=== PATIENT | male | born 1960 | race Two or more races ===

== ENCOUNTER 2025-03-29 07:36 | Inpatient (IN) | payer MEDICAID, OTHER ==
[~2025-03-29] VITALS: Ht 177.8 cm; Wt 98.0 kg
[2025-03-29] MEDS: SODIUM CHLORIDE 0.9% 1,000 ML IV SCH (00:15)
[2025-03-29 08:13] LABS: Hematocrit 45.4 % (41.0-53.0); Hemoglobin 15.2 g/dL (13.5-17.5); Mean Corpuscular Hemoglobin 29.1 pg (28.0-32.0); Mean Corpuscular Volume 86.8 fL (80.0-100.0); Nucleated Red Blood Cells % 0.0 %
[2025-03-29 08:18] LABS: Chloride 105 mmol/L (98-107); Potassium 4.2 mmol/L (3.5-5.1); Sodium 140 mmol/L (136-145)
[2025-03-29 08:19] LABS: Anion Gap 10 (5-15); Carbon Dioxide 25 mmol/L (20-31)
--- NOTE | 2025-03-29 08:19 | ED.PDOC ---
HPI Comments 65 year old male presents to the EDwith a chief complaint of chest pain onset 1 day. Patient has been experiencing chest pain for the past day, radiating to LT arm. He was working, lifting heavy objects, when he began experiencing mid chest pain radiating to LT arm. Pain noticed pain worsened this morning, came to ED. Upon ED arrival, patient was hypertensive with BP 221/142. Denies shortness of breath, nausea, vomiting, diarrhea, headache, dizziness, numbness/tingling, blurred vision. No other symptoms or modifying factors present at this time. Chief Complaint: Chest Pain Time Seen by MD: 08:10 Reviewed Notes: Medications, Allergies Allergies: Coded Allergies: NO KNOWN ALLERGIES (Unverified , 03/29/25) Information Source: Patient Mode of Arrival: Ambulatory Severity: Moderate Timing: Days Duration: Since onset Prehospital treatment: None Location: Chest (L) Radiation: Arm (L) Quality: Sharp Onset: At Rest Cardiac Risk Factors: None PE Risk Factors: None History of: None Modifying Factors: Nothing Past Medical History PAST MEDICAL HISTORY: Denies Surgical History: Denies all surgeries Family History Family History: Reviewed,noncontributory to illness, No family hx of Cancer, No family hx of DM, No family hx of Heart ector, No family hx of HTN, No family hx ofKidney ector, No family hx of Liver ector, No family hx of Lung ector, No family hx of Stroke Social History Smoker: Non-Smoker Alcohol: Denies ETOH Use Drugs: Denies Drug Use Lives In: Home Constitutional: denies: chills, diaphoresis, fatigue, fever, malaise, sweats, weakness, others EENTM: denies: blurred vision, double vision, ear bleeding, ear discharge, ear drainage, ear pain, ear ringing, eye pain, eye redness, hearing loss, mouth pain, mouth swelling, nasal discharge, nose bleeding, nose congestion, nose pain, photophobia, tearing, throat pain, throat swelling, voice changes, others Respiratory: denies: cough, hemoptysis, orthopnea, SOB at rest, shortness of breath, SOB with excertion, stridor, wheezing, others Cardiovascular: reports: chest pain; denies: dizzy spells, diaphoresis, Dyspnea on exertion, edema, irregular heart beat, left arm pain, lightheadedness, palpitations, PND, syncope, others Gastrointestinal: denies: abdomen distended, abdominal pain, blood streaked bowels, constipated, diarrhea, dysphagia, difficulty swallowing, hematemesis, melena, nausea, poor appetite, poor fluid intake, rectal bleeding, rectal pain, vomiting, others Genitourinary: denies: burning, dysuria, flank pain, frequency, hematuria, incontinence, penile discharge, penile sore, pain, testicle pain, testicle swelling, urgency, others Neurological: denies: dizziness, fainting, headache, left sided numbness, left sided weakness, numbness, paresthesia, pre-existing deficit, right sided numbness, right sided weakness, seizure, speech problems, tingling, tremors, weakness, others Musculoskeletal: reports: others (LT arm pain); denies: back pain, gout, joint pain, joint swelling, muscle pain, muscle stiffness, neck pain Integumetry: denies: bruises, change in color, change in hair/nails, dryness, laceration, lesions, lumps, rash, wounds, others Allergic/Immunocompromised: denies: Difficulty Healing, Frequent Infections, Hives, Itching, others Hematologic/Lymphatic: denies: anemia, blood clots, easy bleeding, easy bruisi ng, swollen glands, others Endocrine: denies: excessive hunger, excessive sweating, excessive thirst, exce ssive urination, flushing, intolerance to cold, intolerance to heat, unexplained weight gain, unexplained weight loss, others Psychiatric: denies: anxiety, bipolar disorder, depression, hopeless, panic disorder, schizophrenia, sleepless, suicidal, others All Other Systems: Reviewed and Negative Physical Exam General Appearance: Moderate Distress, Normal HEENT: Normal ENT Inspection, Pharynx Normal, TMs Normal Neck: Full Range of Motion, Non-Tender, Normal, Normal Inspection Respiratory: Chest Non-Tender, Lungs Clear, No Accessory Muscle Use, No Respiratory Distress, Normal Breath Sounds Cardiovascular: No Edema, No JVD, No Murmur, No Gallop, Normal Peripheral Pulses, Regular Rate/Rhythm Breast Exam: Deferred Gastrointestinal: No Organomegaly, Non Tender, No Pulsatile Mass, Normal Bowel Sounds, Soft Genitalia: Deferred Pelvic: Deferred Rectal: Deferred Extremities: No calf tenderness, Normal capillary refill, Normal inspection, Normal range of motion, Non-tender, No pedal edema Musculoskeletal : Apperance: Normal Neurologic: Alert, dip stand loader II-XII nml as Tested, No Motor Deficits, Normal Affect, Normal Mood, No Sensory Deficits Cerebellar Function: Normal Reflexes: Normal Skin: Dry, Normal Color, Warm Peripheral Pulses: 3+ Radial (R), 3+ Radial (L) Lymphatic: No Adenopathy Was a procedure done? Was a procedure done?: No CP Differential Dx Differential Diagnosis: A-fib, A-Flutter, Angina, Anxiety / Panic Attack, Atrial Dysrhythmia, Electrolyte Disorder Differential Diagnosis: Chest Wall Pain, Myocardial Infarction X-Ray, Labs, Meds, VS Vital Signs Date Time Temp Pulse Resp B/P (MAP) Pulse Ox O2 Delivery O2 Flow Rate FiO2 03/29/25 07:45 97 03/29/25 07:44 217/131 (159) 03/29/25 07:43 97.3 106 15 221/142 (168) 99 97.3 03/29/25 07:38 97.3 106 15 221/142 98 97.3 Lab Test 03/29/25 08:00 Range/Units White Blood Count 8.3 4.4-10.8 10^3/uL Red Blood Count 5.23 4.5-5.90 10^6/uL Hemoglobin 15.2 13.5-17.5 g/dL Hematocrit 45.4 41.0-53.0 % Mean Corpuscular Volume 86.8 80.0-100.0 fL Mean Corpuscular Hemoglobin 29.1 28.0-32.0 pg Mean Corpuscular Hemoglobin Concent 33.5 32.0-36.0 g/dL Red Cell Distribution Width 14.6 H 11.8-14.3 % Platelet Count 245 140-450 10^3/uL Mean Platelet Volume 9.3 6.9-10.8 fL Neutrophils (%) (Auto) 64.3 37.0-80.0 % Lymphocytes (%) (Auto) 27.5 10.0-50.0 % Monocytes (%) (Auto) 4.1 0.0-12.0 % Eosinophils (%) (Auto) 3.1 0.0-7.0 % Basophils (%) (Auto) 1.0 0.0-2.0 % Neutrophils # (Auto) 5.3 1.6-8.6 10 ^3/uL Lymphocytes # (Auto) 2.3 0.4-5.4 10 ^3/uL Monocytes # (Auto) 0.3 0-1.3 10 ^3/uL Eosinophils # (Auto) 0.3 0-0.8 10 ^3/uL Basophils # (Auto) 0.1 0-0.2 10 ^3/uL Nucleated Red Blood Cells 0.0 % Sodium Level 140 136-145 mmol/L Potassium Level 4.2 3.5-5.1 mmol/L Chloride Level 105 98-107 mmol/L Carbon Dioxide Level 25 20-31 mmol/L Anion Gap 10 5-15 Blood Urea Nitrogen 21 9-23 mg/dL Creatinine 1.22 0.700-1.30 mg/dL Glomerular Filtration Rate Calc 66 >90 mL/min BUN/Creatinine Ratio 17.2 10.0-20.0 Serum Glucose 127 H 74-106 mg/dL Calcium Level 10.0 8.7-10.4 mg/dL Troponin I High Sensitivity 195 *H </=54 ng/L Patient alert. Came in because of chest pain. Denies use of any medication. Vitals stable. Blood pressure elevated. Was given clonidine. Was given aspirin. Was given nitro. EKG reviewed does not show any acute changes. WBC within normal limits. Hemoglobin within normal limits. Continue monitoring. [place] [id number] Ph: [phone] DIAGNOSTIC IMAGING Diagnostic Imaging Report : [id number] Signed PATIENT: TERESA DEL RIO ACCT: [id number] UNIT: [id number] : 1960 LOC: ER ROOM / BED: / AGE / SEX: 65 / M ADM STATUS: REG ER SERVICE 0750 ORDERING PHYSICIAN: BULMARO HOFFMANN NP PROCEDURE(s): CXR1 - CHEST XRAY 1 VIEW REASON: CHEST PAIN ORDER NUMBER(s): [id number], ACCESSION NUMBER(s): [id number] CHEST RADIOGRAPH Indication: CHEST PAIN Technique: Single frontal view of the chest was obtained COMPARISON: None FINDINGS: Lines and Tubes: None Lungs: Increased interstital prominence. This may represent pulmonary vascular congestion and/or viral pneumonia. Pleura: No effusion. No pneumothorax. Cardiomediastinal contours: Unremarkable Bones: Unremarkable IMPRESSION: Increased interstital prominence. This may represent pulmonary vascular congestion and/or viral pneumonia. ATED BY: JAYLON BLOUNT MD DICTATED DATE/TIME: 03/29/25837 SIGNED BY: JAYLON BLOUNT MD SIGNED DATE/TIME: 03/29/25837 CC: Time of 1ST Reevaluation: 08:40 Reevaluation 1ST: Unchanged Patient Education/Counseling: Diagnosis, Treatment, Prognosis Family Education/Counseling: No Family Present SEPSIS Sepsis Screen Date sepsis recognized/suspect: Mar 29, 2025 Time Sepsis recognized/suspect: 740 Recent Procedure: No On Antibiotic Therapy: No Respiratory Rate >20: No Heart Rate >90: No Temp<36 C (96.8 F) or >38.3 C: No SBP <90 or MAP <65 mmHG: No New Acute Mental Status Change: No Is the patient on CPAP, BIPAP,: No Physician Orders Troponin-I Hs (03/29/25 08:42) Troponin-I Hs (03/29/25 10:42) Electrocardigram (03/29/25 07:58) Electrocardigram (03/29/25 08:58) Electrocardigram (03/29/25 10:58) Chest Xray 1 View (03/29/25 07:50) Vital Signs Date Time Temp Pulse Resp B/P (MAP) Pulse Ox O2 Delivery O2 Flow Rate FiO2 03/29/25 07:45 97 03/29/25 07:44 217/131 (159) 03/29/25 07:43 97.3 106 15 221/142 (168) 99 97.3 03/29/25 07:38 97.3 106 15 221/142 98 97.3 Laboratory Tests Test 03/29/25 08:00 White Blood Count 8.3 10^3/uL (4.4-10.8) Departure 1 Departure Time of Disposition: 08:20 Impression: Primary Impression: Hypertensive emergency Additional Impression: Chest pain of unknown etiology Disposition: ADMITTED INPATIENT Admit to: Med Surg Condition: Guarded Critical Care Note Critical Care Time?: Yes (90 min-critical care time only) Stability Stability form required: No Heart Score Heart Score: Heart Score Response (Comments) Value History Slightly Suspicious 0 EKG Normal 0 Age >65 2 Risk Factors >3 or Hx ASHD 2 Troponin Normal limit 0 Total 4 I personally scribed for DINA SOTO MD ([email or web address]) on 03/29/25 at 08:19. Electronically submitted by Sydnee Tilley ([email or web address]). I personally scribed for DINA SOTO MD ([email or web address]) on 03/29/25 at 08:45. Electronically submitted by Sydnee Tilley ([email or web address]). DINA SOTO MD Mar 29, 2025 08:19
[2025-03-29 08:20] LABS: Calcium 10.0 mg/dL (8.7-10.4)
[2025-03-29 08:24] LABS: BUN/Creatinine Ratio 17.2 (10.0-20.0); Blood Urea Nitrogen 21 mg/dL (9-23)
[2025-03-29 08:25] LABS: Glucose 127 mg/dL (74-106)
--- NOTE | 2025-03-29 08:40 | DVH ---
CHEST RADIOGRAPH Indication: CHEST PAIN Technique: Single frontal view of the chest was obtained COMPARISON: None FINDINGS: Lines and Tubes: None Lungs: Increased interstital prominence. This may represent pulmonary vascular congestion and/or viral pneumonia. Pleura: No effusion. No pneumothorax. Cardiomediastinal contours: Unremarkable Bones: Unremarkable IMPRESSION: Increased interstital prominence. This may represent pulmonary vascular congestion and/or viral pneumonia.
[2025-03-29] MEDS: NITROGLYCERIN 0.4 MG SL TAB SL ONE (09:02)
--- NOTE | 2025-03-29 10:11 | ECG ---
[facility] Test Date: 2025-03-29 Test Time: 08:31:58 Pat Name: ETRESA DEL RIO Department: Room: 0246T Gender: M Injection Molding Technician: DAVID : 1960 Requested By: DINA SOTO Order Number: [id number] Reading MD: Wellington Dickey Measurements Intervals [place] Rate: 96 P: 74 IL: 142 QRS: 75 QRSD: 96 T: -20 QT: 360 QTc: 455 Interpretive Statements Sinus rhythm Nonspecific repol abnormality, lateral leads Baseline wander in lead(s) V2,V4 Electronically Signed On 04-01-2025 17:14:33 PST by Wellington Dickey Please click the below link to view image of tracing.
--- NOTE | 2025-03-29 10:11 | ECG ---
Test Date: 2025-03-29 Test Time: 07:45:05 Pat Name: TERESA DEL RIO Department: Room: 0246T Gender: M Rabbler: DAVID : 1960 Requested By: DINA SOTO Order Number: [id number] Reading MD: Wellington Dickey Measurements Intervals [address] Rate: 97 P: 70 AR: 140 QRS: 78 QRSD: 95 T: -9 QT: 385 QTc: 489 Interpretive Statements Sinus rhythm Nonspecific repol abnormality, diffuse leads Borderline prolonged QT interval Electronically Signed On 04-01-2025 17:14:53 PST by Wellington Dickey Please click the below link to view image of tracing.
[2025-03-29] MEDS ORDERED: HYDROcodone-ACET 5/325MG TAB PO PRN (11:30)
[2025-03-29] MEDS ORDERED: ONDANSETRON HCL 4 MG/2 ML VIAL IV PRN (11:30)
[2025-03-29] MEDS ORDERED: ACETAMINOPHEN 325 MG TAB PO PRN (11:30)
[2025-03-29] MEDS ORDERED: DOCUSATE SOD 100 MG CAP PO PRN (11:30)
[2025-03-29] MEDS ORDERED: NITROGLYCERIN 0.4 MG SL TAB SL PRN (11:30)
--- NOTE | 2025-03-29 11:34 | DVHHP2 ---
History of Present Illness Reason for Visit: Chest Pain History of Present Illness Noé Barnes is a 65-year-old male with no significant past medical history, however, he has not been to see a primary care provider in over 30 years, who came to the hospital for chest pain. Patient states his chest pain began last night about 1700. It was intermittent, sharp, and radiated to his left arm and shoulder. He states the pain went away, and thought that maybe it was from the heavy lifting he was doing earlier in the day. He was able to sleep, but woke up about 0630 with the same chest pain. This time it was not going away prompting him to come to the hospital. Once in the ER he was found to be have severe h ypertension and elevated troponin. He will be admitted for cardiac work up. Past Surgical History: None Smoke: No ALCOHOL: none Drugs: None Lives: Alone Domestic Violence: Neg Review of Systems Constitutional: No: Fever, Chills, Sweats, Weakness, Malaise, Other Eyes: No: Pain, Vision change, Conjunctivae inflammation, Eyelid inflammation, Other, Redness ENT: No: Ear pain, Ear discharge, Nose pain, Nose discharge, Nose congestion, Mouth pain, Mouth swelling, Throat pain, Throat swelling, Other Respiratory: No: Cough, Dry, Shortness of breath, SOB with excertion, Wheezing, Hemoptysis, Pleuritic Pain, Sputum, Wheezing, Other Cardiovascular: Chest Pain; No: Palpitations, Orthopnea, Paroxysmal Noc. Dyspnea, Edema, Lt Headedness, Other Gastrointestinal: No: Nausea, Vomiting, Abdominal Pain, Diarrhea, Constipation, Melena, Hematochezia, Other Genitourinary: No Dysuria, No Frequency, No Incontinence, No Hematuria, No Retention, No Other Musculoskeletal: No: other, neck pain, shoulder pain, arm pain, back pain, hand pain, leg pain, foot pain Skin: No: Rash, Lesions, Jaundice, Bruising, Other Neurological: No: Weakness, Numbness, Incoordination, Change in speech, Confusion, Seizures, Other Allergies: Coded Allergies: NO KNOWN ALLERGIES (Unverified , 03/29/25) Medications Current Medications Medications Dose Ordered Sig/Tona Route Start Time Stop Time Status Last Admin Dose Admin Sodium Chloride 10 ml Q8HR IV 03/29/25 14:00 UNV Acetaminophen/ Hydrocodone Bitart 1 tab Q4HP PRN PO 03/29/25 11:30 UNV Ondansetron HCl 4 mg Q4HP PRN IV 03/29/25 11:30 UNV Docusate Sodium 100 mg BIDPRN PRN PO 03/29/25 11:30 UNV Exam Vital Signs Vital Signs Date Time Temp Pulse Resp B/P (MAP) Pulse Ox O2 Delivery O2 Flow Rate FiO2 03/29/25 09:56 98.3 96 14 168/107 (127) 96 98.3 General Appearance: Alert, Oriented X3, Cooperative, mild distress HEENT: Atraumatic, PERRLA, Mucous membr. moist/pink Respiratory: Clear to auscultation, Normal air movement Cardiovascular: Normal S1, Normal S2, Other (SR-ST) Abdominal: Normal bowel sounds, Soft, No tenderness, No hepatospenomegaly Extremities: No clubbing, No cyanosis, No edema, Normal pulses Skin: No rashes, No breakdown, No significant lesion Neuro: Normal gait, Normal speech, Strength at 5/5 X4 ext Psych/Mental Status: Mental status NL, Mood NL Labs/Xrays Labs Test 03/29/25 11:04 03/29/25 08:00 Range/Units White Blood Count 8.3 4.4-10.8 10^3/uL Red Blood Count 5.23 4.5-5.90 10^6/uL Hemoglobin 15.2 13.5-17.5 g/dL Hematocrit 45.4 41.0-53.0 % Mean Corpuscular Volume 86.8 80.0-100.0 fL Mean Corpuscular Hemoglobin 29.1 28.0-32.0 pg Mean Corpuscular Hemoglobin Concent 33.5 32.0-36.0 g/dL Red Cell Distribution Width 14.6 H 11.8-14.3 % Platelet Count 245 140-450 10^3/uL Mean Platelet Volume 9.3 6.9-10.8 fL Neutrophils (%) (Auto) 64.3 37.0-80.0 % Lymphocytes (%) (Auto) 27.5 10.0-50.0 % Monocytes (%) (Auto) 4.1 0.0-12.0 % Eosinophils (%) (Auto) 3.1 0.0-7.0 % Basophils (%) (Auto) 1.0 0.0-2.0 % Neutrophils # (Auto) 5.3 1.6-8.6 10 ^3/uL Lymphocytes # (Auto) 2.3 0.4-5.4 10 ^3/uL Monocytes # (Auto) 0.3 0-1.3 10 ^3/uL Eosinophils # (Auto) 0.3 0-0.8 10 ^3/uL Basophils # (Auto) 0.1 0-0.2 10 ^3/uL Nucleated Red Blood Cells 0.0 % Sodium Level 140 136-145 mmol/L Potassium Level 4.2 3.5-5.1 mmol/L Chloride Level 105 98-107 mmol/L Carbon Dioxide Level 25 20-31 mmol/L Anion Gap 10 5-15 Blood Urea Nitrogen 21 9-23 mg/dL Creatinine 1.22 0.700-1.30 mg/dL Glomerular Filtration Rate Calc 66 >90 mL/min BUN/Creatinine Ratio 17.2 10.0-20.0 Serum Glucose 127 H 74-106 mg/dL Calcium Level 10.0 8.7-10.4 mg/dL CHEST RADIOGRAPH FINDINGS: Lines and Tubes: None Lungs: Increased interstital prominence. This may represent pulmonary vascular congestion and/or viral pneumonia. Pleura: No effusion. No pneumothorax. Cardiomediastinal contours: Unremarkable Bones: Unremarkable IMPRESSION: Increased interstitial prominence. This may represent pulmonary vascular congestion and/or viral pneumonia. SEPSIS Sepsis Screen Date sepsis recognized/suspect: Mar 29, 2025 Time Sepsis recognized/suspect: 0856 Recent Procedure: No On Antibiotic Therapy: No Respiratory Rate >20: No Heart Rate >90: No Temp<36 C (96.8 F) or >38.3 C: No SBP <90 or MAP <65 mmHG: No New Acute Mental Status Change: No Is the patient on CPAP, BIPAP,: No Physician Orders Troponin-I Hs (03/29/25 10:42) Electrocardigram (03/29/25 10:58) Chest Xray 1 View (03/29/25 07:50) Admit (03/29/25 11:18) Code Status (03/29/25 11:18) 2 Gm Sodium Diet (03/29/25 Lunch) Sodium Chloride Lock (Saline Lock Ns) (03/29/25 14:00) Hydrocodone-Acet 5/325mg Tab ([place] 5/32 (03/29/25 11:30) Ondansetron Hcl (Zofran) (03/29/25 11:30) Docusate Sodium Capsule (Colace Capsule) (03/29/25 11:30) Enoxaparin Sodium (Lovenox) (03/30/25 10:00) Complete Blood Count (03/30/25 04:00) Comprehensive Metabolic Panel (03/30/25 04:00) Echo 2d Mode Cardiac Dop (03/29/25 11:18) Condition: Serious (03/29/25 11:18) Acetaminophen Tablet (Tylenol Tablet) (03/29/25 11:30) Nitroglycerin Sublingual (Ntrostat Subli (03/29/25 11:30) Morphine Sulfate Injection (03/29/25 11:30) Stat Ekg For Chest Pain (03/29/25 11:18) Notify Md Of Changes From Base (03/29/25 11:18) Patient Care Representative For 24 Hours (03/29/25 11:18) Emergency Dysrhythmia Protocol (03/29/25 11:18) Rhythm Strips Once Every Shift (03/29/25 11:18) Oxygen By Nasal Cannula (03/29/25 11:18) * Cardiology Consult (03/29/25 11:18) Vital Signs Date Time Temp Pulse Resp B/P (MAP) Pulse Ox O2 Delivery O2 Flow Rate FiO2 03/29/25 09:56 98.3 96 14 168/107 (127) 96 98.3 03/29/25 09:04 98.3 104 14 195/133 (153) 97 98.3 03/29/25 09:02 98.3 104 17 195/133 (153) 97 98.3 03/29/25 09:02 195/133 03/29/25 09:02 195/133 03/29/25 08:31 96 03/29/25 07:45 97 03/29/25 07:44 217/131 (159) 03/29/25 07:43 97.3 106 15 221/142 (168) 99 97.3 03/29/25 07:38 97.3 106 15 221/142 98 97.3 Laboratory Tests Test 03/29/25 08:00 White Blood Count 8.3 10^3/uL (4.4-10.8) Medications Medications Dose Ordered Sig/Tona Route Start Time Stop Time Status Last Admin Dose Admin Aspirin 325 mg ONCE ONCE PO 03/29/25 08:30 03/29/25 08:31 DC 03/29/25 08:59 325 MG Clonidine HCl 0.1 mg ONCE ONCE PO 03/29/25 08:00 03/29/25 08:03 DC 03/29/25 09:02 0.1 MG Nitroglycerin 0.4 mg ONCE ONCE SL 03/29/25 08:30 03/29/25 08:31 DC 03/29/25 09:02 0.4 MG Assessment/Plan Assessment/Plan Assessment: Hypertensive emergency, Elevated troponin, Plan: Admit to Tele, Cardiology consult, ECHO, TSH, A1c, Lipid panel, Start ASA and statin, Trend troponin, Plan discussed with: Patient My Orders Orders - LAYA SEGUNDO [employer] CUTTER Procedure Category Date Status Time Admit ADMIT 03/29/25 Transmitted 11:18 Code Status CODE 03/29/25 Transmitted 11:18 2 Gm Sodium Diet DIET 03/29/25 Transmitted Lunch Sodium Chloride Lock PHA 03/29/25 Transmitted (Saline Lock Ns) 14:00 Hydrocodone-Acet PHA 03/29/25 Transmitted 5/325mg Tab ([place] 11:30 Ondansetron Hcl PHA 03/29/25 Transmitted (Zofran) 11:30 Docusate Sodium PHA 03/29/25 Transmitted Capsule (Colace 11:30 Enoxaparin Sodium PHA 03/30/25 Transmitted (Lovenox) 10:00 Complete Blood Count LAB 03/30/25 Verified 04:00 Comprehensive LAB 03/30/25 Verified Metabolic Panel 04:00 Echo 2d Mode Cardiac US 03/29/25 Logged DOP 11:18 Condition: Serious MANDEEP 03/29/25 In Process 11:18 Acetaminophen Tablet PHA 03/29/25 Transmitted (Tylenol Tablet) 11:30 Nitroglycerin PHA 03/29/25 Transmitted Sublingual (Ntrostat 11:30 Morphine Sulfate PHA 03/29/25 Transmitted Injection 11:30 Stat Ekg For Chest MANDEEP 03/29/25 In Process Pain 11:18 Notify Of Changes MANDEEP 03/29/25 In Process From Base 11:18 Patient Care Representative For MANDEEP 03/29/25 In Process 24 Hours 11:18 Emergency Dysrhythmia MANDEEP 03/29/25 In Process Protocol 11:18 Rhythm Strips Once MANDEEP 03/29/25 In Process Every Shift 11:18 Oxygen By Nasal RT 03/29/25 Transmitted Cannula 11:18 * Cardiology Consult CONS 03/29/25 Transmitted 11:18 Date of Service: Mar 29, 2025 Billing Provider: LAYA SEGUNDO Common Visit Codes: [id number] INP/OBS CARE (HIGH) LAYA SEGUNDO Mar 29, 2025 11:34
[2025-03-29] MEDS ORDERED: MORPHINE SULFATE 4 MG/ML SYR/VIAL IV PRN (12:15)
[2025-03-29 12:16] LABS: HDL Cholesterol 54 mg/dL (40-59)
[2025-03-29 12:17] LABS: Cholesterol 303 mg/dL (< 200); Triglycerides 220 mg/dL (< 150)
[2025-03-29] MEDS: hydroCHLOROthiazide 25 MG TAB PO ONE (13:15)
[2025-03-29] MEDS: LOSARTAN POTASSIUM 25 MG TAB PO ONE (13:15)
--- NOTE | 2025-03-29 14:04 | DVHINCON2 ---
Date Seen: Mar 29, 2025 Referring Physician HEENA Ford Reason for Consultation Hypertensive emergency, chest pain, elevated troponin History of Present Illness This is a pleasant 65-year-old man who presented to the emergency room via ambulation with a chief complaint of chest pain with onset yesterday. Per patient, he was in the process of remodeling a kitchen and after lifting a heavy object of approximately 150 lbs weight developing pressure-like substernal chest pain lasting for approximately 5 minutes. He also reports waking up earlier today with similar symptoms for which he called 911 and was advised to attend the nearest emergency room. Upon arrival to the emergency room he underwent an initial twelve-lead electrocardiogram revealing a sinus rhythm with non-specific ST depression to multiple leads. A subsequent twelve-lead electrocardiogram revealed a sinus rhythm with resolution of aforementioned changes. Troponin levels are trending up with latest in the 400s ng/L. The patient denies any past medical history, nevertheless he has not seen a PCP in over 40 years. Past Medical History Past medical history reviewed. No other significant than mentioned above. Past Surgical History Past medical history reviewed. No other significant than mentioned above. Family History Family history reviewed. Not significant for cardiovascular disease. Social History Denies the use of illicit drugs, alcohol, or tobacco use. Reports remote history of tobacco and alcohol use. Allergies: Coded Allergies: NO KNOWN ALLERGIES (Unverified , 03/29/25) Home Meds Tylenol OTC Current Medications Current Medications Medications (Trade) Dose Ordered Sig/Tona Route PRN Reason Start Time Stop Time Status Last Admin Sodium Chloride (Saline Lock Ns) 10 ml Q8HR IV 03/29/25 14:00 Acetaminophen/ Hydrocodone Bitart ([place] 5/325MG Tab) 1 tab Q4HP PRN PO MODERATE PAIN (4-6 PAIN SCALE) 03/29/25 11:30 Ondansetron HCl (Zofran) 4 mg Q4HP PRN IV NAUSEA / VOMITING 03/29/25 11:30 Docusate Sodium (Colace Capsule) 100 mg BIDPRN PRN PO FOR CONSTIPATION 03/29/25 11:30 Enoxaparin Sodium (Lovenox) 40 mg DAILY SC 03/30/25 10:00 Acetaminophen (Tylenol Tablet) 650 mg Q6HP PRN PO PAIN SCALE 1-3 OR TEMP>100.4 03/29/25 11:30 Nitroglycerin (Ntrostat Sublingual) 0.4 mg Q5MINP PRN SL FOR CHEST PAIN 03/29/25 11:30 Morphine Sulfate 2 mg Q30M PRN IV FOR CHEST PAIN 03/29/25 12:15 Atorvastatin Calcium (Lipitor) 40 mg HS PO 03/29/25 22:00 Aspirin 81 mg DAILY PO 03/30/25 10:00 Losartan Potassium (Cozaar Tablet) 25 mg DAILY PO 03/30/25 10:00 Hydrochlorothiazide (hydroCHLOROthiazide TABLET) 25 mg DAILY PO 03/30/25 10:00 Hydralazine HCl (Apresoline Injection) 10 mg Q6HP PRN IV SBP>150 03/29/25 13:15 Review of Systems Constitutional: No symptom reported Ears, Nose, & Throat: No symptom reported Eyes: No symptom reported Neurological: No symptoms reported Pulmonary/Respiratory: No symptom reported Cardiovascular: Chest pain Gastrointestinal: No symptom reported Genitourinary: No symptom reported Musculoskeletal: No symptom reported Skin: No symptom reported Psychiatric: No symptom reported Endocrine: No symptom reported Hemotologic/Lymphatic: No symptom reported Vital Signs Vital Signs Date Time Temp Pulse Resp B/P (MAP) Pulse Ox O2 Delivery O2 Flow Rate FiO2 03/29/25 12:12 98.5 96 17 176/97 (123) 94 98.5 Physical Exam General Appearance: Cooperative. Well developed. Obese. In no acute distress Head Exam: Normal inspection Neck Exam: Normal inspection. Non-tender. Normal alignment Pulmonary/Respiratory: Chest non-tender. Clear bilateral breath sounds Cardiovascular/Chest: Regular rate and rhythm. S1, S2. NSR. No murmurs. No JVD. Peripheral Pulses: 2+ Radial (R). 2+ Radial (L). 2+ Pedal (R). 2+ Pedal (L) Abdominal Exam: Normal bowel sounds. Soft. Nontender. No hepatospenomegaly. No masses Ankle Exam: Negative ankle edema Lower extremities: Negative lower extremity edema Neuro/Mental Status: A&O x4. Coherent Thoughts/Psych: Normal thought pattern. Appropriate mood and affect. Good judgement and insight Appearance: In no acute distress Skin Exam: Normal inspection. Normal color. Warm. Dry Labs/Diagnostic Data Labs Test 03/29/25 11:04 03/29/25 08:00 Range/Units Troponin I High Sensitivity 420 *H </=54 ng/L White Blood Count 8.3 4.4-10.8 10^3/uL Red Blood Count 5.23 4.5-5.90 10^6/uL Hemoglobin 15.2 13.5-17.5 g/dL Hematocrit 45.4 41.0-53.0 % Mean Corpuscular Volume 86.8 80.0-100.0 fL Mean Corpuscular Hemoglobin 29.1 28.0-32.0 pg Mean Corpuscular Hemoglobin Concent 33.5 32.0-36.0 g/dL Red Cell Distribution Width 14.6 H 11.8-14.3 % Platelet Count 245 140-450 10^3/uL Mean Platelet Volume 9.3 6.9-10.8 fL Neutrophils (%) (Auto) 64.3 37.0-80.0 % Lymphocytes (%) (Auto) 27.5 10.0-50.0 % Monocytes (%) (Auto) 4.1 0.0-12.0 % Eosinophils (%) (Auto) 3.1 0.0-7.0 % Basophils (%) (Auto) 1.0 0.0-2.0 % Neutrophils # (Auto) 5.3 1.6-8.6 10 ^3/uL Lymphocytes # (Auto) 2.3 0.4-5.4 10 ^3/uL Monocytes # (Auto) 0.3 0-1.3 10 ^3/uL Eosinophils # (Auto) 0.3 0-0.8 10 ^3/uL Basophils # (Auto) 0.1 0-0.2 10 ^3/uL Nucleated Red Blood Cells 0.0 % Sodium Level 140 136-145 mmol/L Potassium Level 4.2 3.5-5.1 mmol/L Chloride Level 105 98-107 mmol/L Carbon Dioxide Level 25 20-31 mmol/L Anion Gap 10 5-15 Blood Urea Nitrogen 21 9-23 mg/dL Creatinine 1.22 0.700-1.30 mg/dL Glomerular Filtration Rate Calc 66 >90 mL/min BUN/Creatinine Ratio 17.2 10.0-20.0 Serum Glucose 127 H 74-106 mg/dL Hemoglobin A1c 5.9 H <5.7 % A1C Calcium Level 10.0 8.7-10.4 mg/dL Triglycerides Level 220 H < 150 mg/dL Cholesterol Level 303 H < 200 mg/dL LDL Cholesterol 228 H < 100 mg/dL HDL Cholesterol 54 40-59 mg/dL Thyroid Stimulating Hormone (TSH) 2.12 0.55-4.78 uIU/mL Assessment Chest pain in the setting of hypertensive emergency NSTEMI, likely type 2 secondary to above Rule out structural heart disease Prediabetes, newly diagnosed Dyslipidemia, newly diagnosed Obesity Plan/Recommendation (Dr. Whitaker) The patient presents with chest pain in the setting of hypertensive emergency. To call of treatment is to lower the systolic blood pressure by no more than 25% in the first hour, then to approximately 160s mmHg over the next 2-6 hours, and then eventually to normal over the next 24-48 hours. The patient with a SBP in the 180s mmHg at time of assessment was chest pain free and was being medicated with HCTZ and ARB. Doubt ACS but given trending troponin levels and risk factors the patient has been scheduled for a treadmill stress test as well as a transthoracic echocardiogram to evaluate cardiac function. Continue single- antiplatelet therapy and lipid-lowering agent. DVT/VTE prophylaxis. Further orders per clinical course. Thank you for allowing us to participate in this patient's care. Please call if you have any questions or concerns. This medical document was created using an electronic medical record system with voice recognition software and computerized dictation system. Although this document has been carefully reviewed, there might still be some phonetic and typographical errors. Occasional wrong-word or ``sound-alike substitutions may have occurred due to the inherent limitations of voice recognition software. These areas are purely typographical due to imperfections of the software programs and do not reflect any compromise in the patient's medical care. Please read the chart carefully and recognize, using context, where these substitutions have occurred. Plan discussed with: Patient, Other NYHA Physical activity limitations: NA Date of Service: Mar 29, 2025 Billing Provider: WARREN DOMINGUEZ Cardiology Common Codes: [id number] INP/OBS CARE (High) WARREN DOMINGUEZ Mar 29, 2025 14:04
[2025-03-29] MEDS: SODIUM CHLOR 0.9% PF (SALINE LOCK) 10ML VIAL/SYR IV SCH (14:10)
[2025-03-29 14:37] VITALS: PULSE 83; O2SAT 98
[2025-03-29 16:12] LABS: INR 1.03 (0.9-1.15); Partial Thromboplastin Time 32.2 SEC (24.5-34.5); Prothrombin Time 10.9 sec (9.3-11.8)
[2025-03-29] MEDS: hydrALAZINE HCL 20 MG/ML VL IV PRN (16:19)
--- NOTE | 2025-03-29 16:59 | DVHCARD ---
Cardiology Stress Test [place] Treadmill Stress Test [place] Referring MD: HEENA Dominguez Protocol: James (with cardiolite) Reason for referral: Chest Pain Target heart Rate:@85%: 131 Percent MPHR: 155 METS: 8.9 Resting Heart rate: 93 Resting Blood Pressure: 164/97 Exercise Heart Rate: 160 Exercise Blood Pressure: 239/121 Reason for Termination of Test: Shortness of breath Baseline EKG: NSR Stress EKG: Sinus tachycardia w/o significant ST-segment changes and PVCs Functional Capacity: Mildly Decreased Heart Rate Response: Adequate Blood Pressure Response: Hypertensive Clinical response: Inconclusive Arrhythmia?: No Cardiolite Injected?: Yes ST-T Changes: Nonspecific Probability of Inducible Ische: Perfusion result pending Date of Service: Mar 29, 2025 Billing Provider: WARREN DOMINGUEZ Cardiology Common Codes: PROCEDURE ONLY Treadmill W/Cardiolite Nuclear: [id number], INTERP, RPT WARREN DOMINGUEZ Mar 29, 2025 16:59
[2025-03-29] MEDS: HEPARIN SODIUM (PORCINE) 5000 UNITS/ML 1ML VIAL IV ONE (17:17)
--- NOTE | 2025-03-29 17:47 | DVHSR ---
APPROVED REPORT Exam: Nuclear Stress Test Indication: Chest pain BMI: 0 Stress Test Details Stress Test: Exercise stress testing was performed using a James protocol. HR Resting HR: 93 bpm Max Heart Rate (APMHR): 155.381685 bpm Max HR Achieved: 160 bpm Target HR (85% APMHR): 131.069661 bpm % of APMHR: 103.23 Recovery HR: 113 bpm BP Resting BP: 164/97 mmHg Recovery BP: 208/124 mmHg ECG Resting ECG: Sinus Rhythm Clinical Reason for Termination: Fatigue Exercise duration: 7 min 17 sec Nurse Comments -Recieved ambulatory, A/Ox4 on RA, connected to x ray consultant, VS stable. PIV S/L flushes well, reviewed POC, pt verbalized understanding. Addy ENTER[employer]ISE SECURITY ARCHITECT here to monitor exam. Treadmill test performed per protocol. Pt stable, tolerated well, VS returned to baseline. Pt to follow up with brasswind instrument repairer for results. Stress ECG Conclusion lvef 45% inferior fixed defect no severe ischemia noted NM EXAM: Myocardial Perfusion REST/STRESS Imaging Protocol: Rest Tc-99m/Stress Tc-99m 1 day Resting Data Rest SPECT myocardial perfusion imaging was performed in supine position 45 minutes following the intravenous injection of 10.3 mCi of Tc-99m Sestamibi. Time of rest injection: 1420 Time of rest imagin Administration Route: IV Administration Site: Right AC Exercise Stress At peak stress, the patient was injected intravenously with 31.2mCi of Tc-99m Sestamibi. Time of stress injection: 1535 Time of stress imagin Administration Route: IV Administration Site: Right AC Gated Stress SPECT was performed 40 minutes after stress injection. The images were gated to evaluate regional wall motion and calculate left ventricular ejection fraction. Nuclear Conclusion Nuclear Findings: negative for ischemia lvef 45% inferior fixed defect no severe ischemia noted
[2025-03-29] MEDS: HEPARIN DRIP/D5W 100UNITS/ML 250 ML IV SCH (17:53)
[2025-03-29 20:00] VITALS: O2SAT 97
[2025-03-29] MEDS: IODIXANOL 320MG/ML 100ML BTL IV ONE ×2 (20:28→23:00)
[2025-03-29] MEDS: LIDOCAINE 2%HCL (LOCAL ANESTH.) INJ 20ML MDV ONE (20:28)
[2025-03-29] MEDS: HEPARIN IN NS 1000Units/500mL 1,500 ML ONE (20:29)
[2025-03-29] MEDS: MIDAZOLAM HCL 2MG/2ML 2ml VIAL (1mg/ml) ONE (20:32)
[2025-03-29] MEDS: HEPARIN SODIUM (PORCINE) 5000 UNITS/ML 1ML VIAL ONE (20:32)
[2025-03-29] MEDS: fentaNYL CITRATE 100 MCG/2 ML VL ONE (20:32)
[2025-03-29] MEDS: VERAPAMIL 2.5MG/ML INJ 2ML VIAL IV ONE (20:33)
--- NOTE | 2025-03-29 20:34 | DVHSR ---
APPROVED REPORT EXAM: Two-dimensional and M-mode echocardiogram with Doppler and color Doppler. Blood Pressure: 168/107 mmHg INDICATION Chest Pain Hypertensive emergency Elevated troponin RISK FACTORS Height: 5'10", Weight: 218 DIMENSIONS LVDd 4.3 (3.8-5.7cm) LA (2D) 3.7 (1.9-4.0cm) Aortic Root 3.7 (2.0-3.7cm) LVDs 3.0 (2.5-4.0cm) LA (MM) (1.9-4.0cm) Aortic Cusp Exc 1.8 (1.5-2.0cm) EF (%) 55.0 (55-70%) Rt. Atrium 3.6 (1.9-4.0cm) Asc. Aorta cm IVSd 1.2 (0.7-1.1cm) RV (D) (1.8-2.4cm) PWd 1.3 (0.7-1.1cm) Mitral Valve Mitral Mitral Stenosis E/A ratio 0.0 2D MVA cm2 Aortic Valve Aortic Valve Aortic Stenosis V1 1.02m/s AO Mean GR. 3mmHg V2 1.39m/s AO Peak GR. 8mmHg LVOT Diameter 1.7 (1.8-2.4cm) Doppler JAKOB 1.66cm2 Pulmonic Valve V2 1.18m/s Conclusion NORMAL LV EF AND IS 65% NORMAL VALVES NORMAL RV FUNCTION NO EFFUSION
[2025-03-29] MEDS: NOREPINEPHRINE 8 MG/250ML KIT 250 ML IV ONE (21:14)
[2025-03-29] MEDS: ANGIOMAX 250 MG VIAL IV ONE ×2 (21:20→21:41)
[2025-03-29] MEDS: SODIUM CHL 0.9% 50 ML ONE ×2 (21:20→21:41)
[2025-03-29] MEDS: ATROPINE SULF 1 MG/10ml SYR ONE (21:21)
--- NOTE | 2025-03-29 21:51 | DVHINCON2 ---
Date Seen: Mar 29, 2025 Referring Physician HEENA Ford Reason for Consultation Hypertensive emergency, chest pain, elevated troponin History of Present Illness This is a pleasant 65-year-old male without any past medical history, nevertheless he has not seen a PCP in over 40 years who presented to the emergency room via ambulation with a chief complaint of chest pain with onset yesterday. Per patient, he was in the process of remodeling a kitchen and after lifting a heavy object of approximately 150 lbs weight developing pressure-like substernal chest pain lasting for approximately 5 minutes. He also reports waking up earlier today with similar symptoms for which he called 911 and was advised to attend the nearest emergency room. Upon arrival to the emergency room he underwent an initial twelve-lead electrocardiogram revealing a sinus rhythm with non-specific ST depression to multiple leads. A subsequent twelve-lead electrocardiogram revealed a sinus rhythm with resolution of aforementioned changes. Troponin levels are trending up with latest in the 400s ng/L. Cardiology is asked to see this patient. Past Medical History Past medical history reviewed. No other significant than mentioned above. Past Surgical History Past medical history reviewed. No other significant than mentioned above. Allergies: Coded Allergies: NO KNOWN ALLERGIES (Unverified , 03/29/25) Current Medications Current Medications Medications (Trade) Dose Ordered Sig/Tona Route PRN Reason Start Time Stop Time Status Last Admin Sodium Chloride (Saline Lock Ns) 10 ml Q8HR IV 03/29/25 14:00 03/29/25 14:10 Acetaminophen/ Hydrocodone Bitart ([place] 5/325MG Tab) 1 tab Q4HP PRN PO MODERATE PAIN (4-6 PAIN SCALE) 03/29/25 11:30 Ondansetron HCl (Zofran) 4 mg Q4HP PRN IV NAUSEA / VOMITING 03/29/25 11:30 Docusate Sodium (Colace Capsule) 100 mg BIDPRN PRN PO FOR CONSTIPATION 03/29/25 11:30 Enoxaparin Sodium (Lovenox) 40 mg DAILY SC 03/30/25 10:00 03/29/25 15:50 DC Acetaminophen (Tylenol Tablet) 650 mg Q6HP PRN PO PAIN SCALE 1-3 OR TEMP>100.4 03/29/25 11:30 Nitroglycerin (Ntrostat Sublingual) 0.4 mg Q5MINP PRN SL FOR CHEST PAIN 03/29/25 11:30 Morphine Sulfate 2 mg Q30M PRN IV FOR CHEST PAIN 03/29/25 12:15 Atorvastatin Calcium (Lipitor) 40 mg HS PO 03/29/25 22:00 Aspirin 81 mg DAILY PO 03/30/25 10:00 Losartan Potassium (Cozaar Tablet) 25 mg DAILY PO 03/30/25 10:00 03/29/25 14:35 DC Hydrochlorothiazide (hydroCHLOROthiazide TABLET) 25 mg DAILY PO 03/30/25 10:00 Hydralazine HCl (Apresoline Injection) 10 mg Q6HP PRN IV SBP>150 03/29/25 13:15 03/29/25 16:19 Losartan Potassium (Cozaar Tablet) 50 mg DAILY PO 03/30/25 10:00 Heparin Sodium/ Dextrose 250 ml @ 10 mls/hr Q24H IV 03/29/25 16:30 03/29/25 17:53 Review of Systems Constitutional: No symptom reported Ears, Nose, & Throat: No symptom reported Eyes: No symptom reported Neurological: No symptoms reported Pulmonary/Respiratory: No symptom reported Cardiovascular: Chest pain Gastrointestinal: No symptom reported Genitourinary: No symptom reported Musculoskeletal: No symptom reported Skin: No symptom reported Psychiatric: No symptom reported Endocrine: No symptom reported Hemotologic/Lymphatic: No symptom reported Vital Signs Vital Signs Date Time Temp Pulse Resp B/P (MAP) Pulse Ox O2 Delivery O2 Flow Rate FiO2 03/29/25 20:00 97 Room Air* 0 21 03/29/25 19:30 100 18 152/91 (111) 03/29/25 16:47 97.9 97.9 Physical Exam GENERAL: Alert and oriented x 3. No acute distress. Obese. EYES: PERRL, EOMI. Anicteric. HENT: Moist mucous membranes. LUNGS: Clear to auscultation bilaterally. CARDIOVASCULAR: Regular rate and rhythm. ABDOMEN: Soft, non-tender and non-distended. EXTREMITIES: No edema. NEUROLOGIC: No focal neurological deficits. SKIN: Warm, dry. Labs/Diagnostic Data Labs Test 03/29/25 19:23 03/29/25 14:40 03/29/25 08:00 Range/Units Troponin I High Sensitivity 2479 *H </=54 ng/L Prothrombin Time 10.9 9.3-11.8 sec Prothrombin Time INR 1.03 0.9-1.15 Activated Partial Thromboplast Time 32.2 24.5-34.5 SEC Magnesium Level 2.2 1.6-2.6 mg/dL White Blood Count 8.3 4.4-10.8 10^3/uL Red Blood Count 5.23 4.5-5.90 10^6/uL Hemoglobin 15.2 13.5-17.5 g/dL Hematocrit 45.4 41.0-53.0 % Mean Corpuscular Volume 86.8 80.0-100.0 fL Mean Corpuscular Hemoglobin 29.1 28.0-32.0 pg Mean Corpuscular Hemoglobin Concent 33.5 32.0-36.0 g/dL Red Cell Distribution Width 14.6 H 11.8-14.3 % Platelet Count 245 140-450 10^3/uL Mean Platelet Volume 9.3 6.9-10.8 fL Neutrophils (%) (Auto) 64.3 37.0-80.0 % Lymphocytes (%) (Auto) 27.5 10.0-50.0 % Monocytes (%) (Auto) 4.1 0.0-12.0 % Eosinophils (%) (Auto) 3.1 0.0-7.0 % Basophils (%) (Auto) 1.0 0.0-2.0 % Neutrophils # (Auto) 5.3 1.6-8.6 10 ^3/uL Lymphocytes # (Auto) 2.3 0.4-5.4 10 ^3/uL Monocytes # (Auto) 0.3 0-1.3 10 ^3/uL Eosinophils # (Auto) 0.3 0-0.8 10 ^3/uL Basophils # (Auto) 0.1 0-0.2 10 ^3/uL Nucleated Red Blood Cells 0.0 % Sodium Level 140 136-145 mmol/L Potassium Level 4.2 3.5-5.1 mmol/L Chloride Level 105 98-107 mmol/L Carbon Dioxide Level 25 20-31 mmol/L Anion Gap 10 5-15 Blood Urea Nitrogen 21 9-23 mg/dL Creatinine 1.22 0.700-1.30 mg/dL Glomerular Filtration Rate Calc 66 >90 mL/min BUN/Creatinine Ratio 17.2 10.0-20.0 Serum Glucose 127 H 74-106 mg/dL Hemoglobin A1c 5.9 H <5.7 % A1C Calcium Level 10.0 8.7-10.4 mg/dL Triglycerides Level 220 H < 150 mg/dL Cholesterol Level 303 H < 200 mg/dL LDL Cholesterol 228 H < 100 mg/dL HDL Cholesterol 54 40-59 mg/dL Thyroid Stimulating Hormone (TSH) 2.12 0.55-4.78 uIU/mL Assessment Chest pain in the setting of hypertensive emergency. NSTEMI, likely type 2 secondary to above. Rule out structural heart disease. Prediabetes, newly diagnosed. Dyslipidemia, newly diagnosed. Obesity. Plan/Recommendation I agree with your ongoing assessment and care of plan. Patient has been seen by María Daly NP on my behalf. We have discussed the plan with the patient. The patient presents with chest pain in the setting of hypertensive emergency. To call of treatment is to lower the systolic blood pressure by no more than 25% in the first hour, then to approximately 160s mmHg over the next 2-6 hours, and then eventually to normal over the next 24-48 hours. The patient with a SBP in the 180s mmHg at time of assessment was chest pain free and was being medicated with HCTZ and ARB. Doubt ACS but given trending troponin levels and risk factors the patient has been scheduled for a treadmill stress test as well as a transthoracic echocardiogram to evaluate cardiac function. Continue single-antiplatelet therapy and lipid-lowering agent. DVT/VTE prophylaxis. Additional plan as per the hospital course. Plan discussed with: Patient NYHA Physical activity limitations: NA Date of Service: Mar 29, 2025 Billing Provider: TOSHIA ZARAGOZA MD Cardiology Common Codes: [id number] INP/OBS CARE (High) Cardiology Consultation Codes: [id number] CONSULT <45MIN TOSHIA ZARAGOZA MD Mar 29, 2025 21:50
[2025-03-29 23:00] VITALS: BP 188/116; PULSE 99; RESP 16; TEMP 97.5; O2SAT 96
[2025-03-29] MEDS: TICAGRELOR 90 MG TAB ONE (23:00)
[2025-03-29 23:15] VITALS: BP 176/104; PULSE 97; RESP 16; O2SAT 97
[2025-03-29 23:30] VITALS: BP_SYST 162; BP_SYST 179; BP_DIAS 104; BP_DIAS 108; PULSE 103; RESP 15; O2SAT 98
[2025-03-29 23:41] VITALS: PULSE 105; RESP 17; O2SAT 99
--- NOTE | 2025-03-29 23:44 | DVHOP ---
DATE OF SURGERY: 03/29/2025 DATE OF SURGERY: 03/29/2025. TECHNIQUE PERFORMED: 1. Emergency care. 2. Management of conscious sedation. 3. Left coronary angiography. 4. Balloon angioplasty of the left circumflex artery with 3.0 x 12 mm length semicompliant balloon. 5. Stenting and angioplasty of mid region of the circumflex artery with 3.5 x 15 mm length, [place] stent of cocone. 6. Intravascular ultrasound of the left main and also the circumflex artery stented region. 7. Balloon angioplasty of the left circumflex stent with 3.5 x 12 mm length non-compliant balloon and made artery size to 3.75 mm in size proximally, mid, and distally. COMPLICATIONS: None. ASSISTANTS: Assisted by our staff over here Alejandro Hummel Francisco, and Richi. INDICATIONS: This is an emergency procedure, 95% narrowing of the left circumflex artery, type 3 lesion, calcified lesion, posteriorly. DESCRIPTION OF PROCEDURE: The procedure risks and benefits were previously discussed. We have put an AL1 6-Chilean guiding catheter, followed by 6-Chilean arterial line, did not work out. So subsequently now we have put AL0.75 size catheter. Able to engage it. We put a brand new [employer] wire, went through very well. Subsequently, we put 3.0 x 12 mm length; balloon angioplasty was done. Subsequently, now we have put 3.5 x 15 mm length [place] stent deployed. Total of 79 mm. Stent size was increased to 3.65 mm, inflated for 33 seconds. Subsequently, for 15 seconds, balloon inflated. Balloon was discontinued. Intravascular ultrasound was done. We found minor gap between the stent and media. So we put 3.5 x 12 mm length non-compliant balloon. Balloon angioplasty was done of the old stent region. Made the stent size 3.75 mm. Procedure went well. Balloon, wire, and catheter all have been discontinued. The patient remained pain-free. CONCLUSION: Prior to performing the procedure, left circumflex artery 95% block. ASHISH grade 3 flow. Post procedure ASHISH grade 3 flow. Residual stenosis 0%. 100% widely open. PLAN OF ACTION: Advised the patient to have aspirin, Brilinta, beta sher medicine, and cholesterol medicine. Outpatient follow-up next week. Ramón Whitaker MD MP/EMIL TID: [id number] RECEIPT: [id number] MTDD
--- NOTE | 2025-03-29 23:53 | DVHOP ---
DATE OF SURGERY: 03/29/2025 DATE OF SURGERY: 03/29/2025 TECHNIQUE PERFORMED: * This is an Emergency case. * Insertion of a 6-Surinamese arterial line in the right radial artery. * Management of conscious sedation. * Right coronary angiography. * Mechanical thrombectomy of the right coronary artery with help of Penumbra catheter. * Balloon angioplasty of mid region of the right coronary artery with 2.0 x 15 mm length semi-compliant balloon. * Stenting and angioplasty of mid region of the right coronary artery with 3.0 x 36 mm length Alessandro [place] stent of [employer]. * Intravascular ultrasound of the right coronary artery. * Balloon angioplasty of the right coronary artery with 3.5 x 15 mm length non-compliant balloon and the entire arterial size was 3.55 mm in size. COMPLICATIONS: None. ASSISTANTS: Assisted by our staff over Shaheed turk. Other assistants are Sher Fields Patrick Brown. INDICATIONS: The patient had an acute myocardial infarction, active chest pain, troponin more than 2500. The patient had a 99.9% complex long segment type C calcified lesion noted in the right coronary artery. DESCRIPTION OF PROCEDURE: Procedure, risks and benefits discussed in a standard manner. 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 A 6-Surinamese arterial line had been placed. JR4 6-Surinamese guiding catheter was passed with a side hole and subsequently now we have also put the [employer] wire of the [employer]. Subsequently, now we were able to do balloon angioplasty with the help of [address] from proximal mid region of the right coronary artery. Subsequently, now we have put a stent 3.0 x 36 mm length [place] Routt stent deployed. A total of 79 mm. Stent size was made gradually to 3.25 mm. It was inflated for 33 seconds, subsequently for 21 seconds. Balloon deflated. Balloon had been discontinued. Subsequently, we also have put an intravascular ultrasound. We found some minor gap between the stent and the media, so now we have put a 3.5 x 15 mm length non-compliant balloon. Balloon angioplasty of the whole stent had been done, made the entire stent size to 3.55 mm in size, and there was some narrowing noted at the marginal branch, but ultimately it had disappeared after giving the nitroglycerin and the nicardipine. Balloon wire catheter all have been discontinued. CONCLUSION: Prior to performing the procedure: * The right coronary artery is a large codominant artery type C lesion, calcified lesion, ASHISH grade 2 flow, narrowing is 99.9%. Post procedure ASHISH grade 3 flow, residual stenosis is 0%, 100% widely open, stent deployment is normal, and no complication. PLAN OF ACTION: Advised the patient to have the aspirin, Brilinta, beta sher, and cholesterol-reducing medicine. Ramón Whitaker MD MP/DELIA TID: [id number] RECEIPT: [id number] [facility]
[2025-03-30] VITALS (7 sets, daily range): BP systolic 108–178; BP diastolic 72–118; PULSE 83–106; RESP 16–19; TEMP 97.3–98.7; O2SAT 96–99
[2025-03-30] MEDS: ATORVASTATIN 20 MG TAB PO SCH (00:11)
[2025-03-30 01:01] LABS: INR 1.5 (0.9-1.15); Prothrombin Time 15.3 sec (9.3-11.8)
[2025-03-30 01:07] LABS: Partial Thromboplastin Time 72.1 SEC (24.5-34.5)
[2025-03-30 05:49] LABS: Hematocrit 41.4 % (41.0-53.0); Hemoglobin 14.1 g/dL (13.5-17.5); Mean Corpuscular Hemoglobin 29.3 pg (28.0-32.0); Mean Corpuscular Volume 85.8 fL (80.0-100.0); Nucleated Red Blood Cells % 0.1 %
[2025-03-30 06:06] LABS: Alanine Aminotransferase 32 U/L (7-40); Albumin 4.7 g/dL (3.2-4.8); Alkaline Phosphatase 101 U/L (46-116); Anion Gap 12 (5-15); BUN/Creatinine Ratio 16.1 (10.0-20.0); Bilirubin, Total 0.5 mg/dL (0.2-1.0); Blood Urea Nitrogen 18 mg/dL (9-23); Calcium 9.9 mg/dL (8.7-10.4); Carbon Dioxide 22 mmol/L (20-31); Chloride 104 mmol/L (98-107); Potassium 3.8 mmol/L (3.5-5.1); Sodium 138 mmol/L (136-145); Total Protein 7.5 g/dL (5.7-8.2)
[2025-03-30 06:08] LABS: Glucose 111 mg/dL (74-106)
[2025-03-30] MEDS ORDERED: ENOXAPARIN SOD 40 MG/0.4 ML SYRINGE SC SCH (10:00)
[2025-03-30] MEDS ORDERED: LOSARTAN POTASSIUM 25 MG TAB PO SCH (10:00)
[2025-03-30] MEDS: TICAGRELOR 90 MG TAB PO SCH (10:01)
[2025-03-30] MEDS: LOSARTAN POTASSIUM 25 MG TAB PO SCH (10:02)
[2025-03-30] MEDS: hydroCHLOROthiazide 25 MG TAB PO SCH (10:03)
[2025-03-30] MEDS: METOPROLOL TARTRATE 25 MG TAB PO SCH (10:04)
--- NOTE | 2025-03-30 15:53 | DVHOP ---
DATE OF SURGERY: 03/29/2025 DATE OF SURGERY: 03/29/2025 TECHNIQUE PERFORMED: * Emergency care. * Ultrasound of right atrial artery. * Management of conscious sedation. * Ultrasound-guided insertion of a 6-Japanese arterial line from the right radial artery. * Left heart cath. * Left ventriculogram. * [place] selective left and right coronary artery angiography. INDICATIONS: Acute myocardial infarction. Troponin in the range of 2500 plus. Active chest pain. ASSISTANTS: Assisted by our staff, Sher Hummel Josue and Richi. DESCRIPTION OF PROCEDURE: Procedure, risks and benefits discussed. Brought to laboratory clerk. Right radial area was thoroughly cleaned with soap and Betadine. The 6-Japanese arterial line also has been placed under ultrasound and we had ordered TIG catheter 5-Japanese 4.0 after giving 100 mcg of nitroglycerin and 2.5 mg of verapamil, and we did a left heart cath and a left ventriculogram was done. Subsequently, with the help of catheter, we were able to also do the left coronary angiography. With the help of catheter did a right coronary angiogram. Procedure completed. IMPRESSION: * Normal left main. * Left anterior descending artery widely open, appears to be grossly normal. * Circumflex artery is a very large codominant artery. Circumflex artery in the mid region is narrowed in the range of 95%, ASHISH grade 3 flow. The right coronary artery is a very large codominant artery. The right coronary artery in the mid region is narrowed 99.9%, ASHISH grade 2 flow and complex type C calcified lesion and at least in the range of 34 mm in length. Ejection fraction of the left ventricle is 60% plus. PLAN OF ACTION: Advised to undergo angioplasty and stent, starting with the right coronary artery. Ramón Whitaker MD MP/HAIM TID: [id number] RECEIPT: [id number] [facility]
[2025-03-30] MEDS ORDERED: HYDR25TA5 PO (18:11)
[2025-03-30] MEDS ORDERED: MET25T PO (18:11)
[2025-03-30] MEDS ORDERED: ATOR40TA52 PO (18:11)
[2025-03-30] MEDS ORDERED: CLOP75TA28 PO (18:11)
[2025-03-30] MEDS ORDERED: ASPI-325 PO (18:11)
[2025-03-30] MEDS ORDERED: LOS25T PO (18:11)
--- NOTE | 2025-03-30 18:14 | DVHDS2 ---
Discharge Summary Date of Admission Mar 29, 2025 at 11:18 Date of Discharge: Mar 30, 2025 Labs/Diagnostic Data: Laboratory Results Test 03/30/25 05:24 03/30/25 00:19 03/29/25 14:40 03/29/25 08:00 White Blood Count 11.3 10^3/uL (4.4-10.8) Red Blood Count 4.83 10^6/uL (4.5-5.90) Hemoglobin 14.1 g/dL (13.5-17.5) Hematocrit 41.4 % (41.0-53.0) Mean Corpuscular Volume 85.8 fL (80.0-100.0) Mean Corpuscular Hemoglobin 29.3 pg (28.0-32.0) Mean Corpuscular Hemoglobin Concent 34.1 g/dL (32.0-36.0) Red Cell Distribution Width 14.5 % (11.8-14.3) Platelet Count 253 10^3/uL (140-450) Mean Platelet Volume 9.5 fL (6.9-10.8) Neutrophils (%) (Auto) 81.2 % (37.0-80.0) Lymphocytes (%) (Auto) 12.8 % (10.0-50.0) Monocytes (%) (Auto) 4.7 % (0.0-12.0) Eosinophils (%) (Auto) 0.4 % (0.0-7.0) Basophils (%) (Auto) 0.9 % (0.0-2.0) Neutrophils # (Auto) 9.2 10 ^3/uL (1.6-8.6) Lymphocytes # (Auto) 1.5 10 ^3/uL (0.4-5.4) Monocytes # (Auto) 0.5 10 ^3/uL (0-1.3) Eosinophils # (Auto) 0 10 ^3/uL (0-0.8) Basophils # (Auto) 0.1 10 ^3/uL (0-0.2) Nucleated Red Blood Cells 0.1 % Sodium Level 138 mmol/L (136-145) Potassium Level 3.8 mmol/L (3.5-5.1) Chloride Level 104 mmol/L (98-107) Carbon Dioxide Level 22 mmol/L (20-31) Anion Gap 12 (5-15) Blood Urea Nitrogen 18 mg/dL (9-23) Creatinine 1.12 mg/dL (0.700-1.30) Glomerular Filtration Rate Calc 73 mL/min (>90) BUN/Creatinine Ratio 16.1 (10.0-20.0) Serum Glucose 111 mg/dL (74-106) Calcium Level 9.9 mg/dL (8.7-10.4) Total Bilirubin 0.5 mg/dL (0.2-1.0) Aspartate Amino Transferase (AST) 34 U/L (13-40) Alanine Aminotransferase (ALT) 32 U/L (7-40) Alkaline Phosphatase 101 U/L (46-116) Troponin I High Sensitivity 4727 ng/L (</=54) Total Protein 7.5 g/dL (5.7-8.2) Albumin 4.7 g/dL (3.2-4.8) Prothrombin Time 15.3 sec (9.3-11.8) Prothrombin Time INR 1.50 (0.9-1.15) Activated Partial Thromboplast Time 72.1 SEC (24.5-34.5) Magnesium Level 2.2 mg/dL (1.6-2.6) Hemoglobin A1c 5.9 % A1C (<5.7) Triglycerides Level 220 mg/dL (< 150) Cholesterol Level 303 mg/dL (< 200) LDL Cholesterol 228 mg/dL (< 100) HDL Cholesterol 54 mg/dL (40-59) Thyroid Stimulating Hormone (TSH) 2.12 uIU/mL (0.55-4.78) Other Laboratory Tests 03/30/25 05:24 Brief Hx & Hospital Course: 65-year-old male with a past medical history none significant presented to the hospital with chest pain found to have NSTEMI. Patient underwent Cardiolite stress test which showed fixed defect. Patient underwent left heart catheterization with a PCI to left circumflex as well as RCA with two stents. Patient is currently cleared by Cardiology to be discharged. Patient will be on aspirin statin beta sher, Plavix as well as losartan and hydrochlorothiazide. Patient is requesting to go home he is stable to be discharged. Condition at Discharge: Stable Final Diagnosis/Problems List 1. NSTEMI status post left heart catheterization with a PCI to left circumflex and RCA 2. Hypertension 3. Dyslipidemia Discharge Disposition: Home SNF Discharge Will this Physician continue t: No Discharge Instruct/Medications Diet: Cardiac 2g Na,low cholest Activity: No Restrictions, As Tolerated Follow Up/Referral: Please follow up with the PCP in 1-2 weeks Follow up with the Cardiology Dr. Lata Whitaker in one week Medications: As prescribed and reconciled. New Medications: Atorvastatin Calcium (Atorvastatin Calcium) 40 Mg Tab 1 TAB PO QPM, #90 TAB 3 Refills Clopidogrel Bisulfate (Plavix) 75 Mg Tab 1 TAB PO DAILY, #90 TAB 1 Refill Aspirin (Aspirin Low Dose) 81 Mg Tab 81 MG PO DAILY, #60 TAB Hctz (Hydrochlorothiazide) 25 Mg Tab 25 MG PO DAILY, #60 TAB Losartan Potassium (Losartan Potassium) 25 Mg Tab 50 MG PO DAILY, #60 TAB Metoprolol Tartrate (Lopressor) 25 Mg Tb 25 MG PO BID, #60 TAB Scheduled Aspirin (Aspirin Low Dose), 81 MG PO DAILY Atorvastatin Calcium (Atorvastatin Calcium), 1 TAB PO QPM Clopidogrel Bisulfate (Plavix), 1 TAB PO DAILY Hctz (Hydrochlorothiazide), 25 MG PO DAILY Losartan Potassium (Losartan Potassium), 50 MG PO DAILY Metoprolol Tartrate (Lopressor), 25 MG PO BID Discharge Statement: "Patient was advised to return to the ER or call 911 if any headaches, dizziness, shortness of breath, chest pain, abdominal pain, bleeding, fevers, or worsening of medical condition. Patient was counseled about treatment plan, medications, possible side effects, patientverbalized understanding. All questions were answered to the best of my ability. This discharge took greater then 30 minutes in planning, reviewing documentation, counseling the patient, and discussing with other team members." ASSESSMENT ASSESSMENT Assessment 1. NSTEMI status post left heart catheterization with a PCI to left circumflex and RCA 2. Hypertension 3. Dyslipidemia Date of Service: Mar 30, 2025 Billing Provider: BREANNA LOUIE MD Common Visit Codes: 33062-ZEQ/OBS DISCH DAY >30min BREANNA LOUIE MD Mar 30, 2025 18:14
[2025-03-30] MEDS: CLOPIDOGREL BISULFATE 75 MG TAB PO ONE (18:54)
--- NOTE | 2025-03-30 23:40 | DVHPN2 ---
Progress Note - Dictate Date Seen: Mar 30, 2025 Medical Necessity Reason Pt with a Central, PICC or Fol: No Subjective Patient was seen and evaluated in follow-up. Patient underwent left heart cath, [place] selective left and right coronary artery angiography. Patient underwent right coronary angiography, mechanical thrombectomy of the right coronary artery with help of Penumbra catheter, balloon angioplasty of mid region of the right coronary artery, stenting and angioplasty of mid region of the right coronary artery, balloon angioplasty of the right coronary artery, left coronary angiography, balloon angioplasty of the left circumflex artery, stenting and angioplasty of mid region of the circumflex artery, balloon angioplasty of the left circumflex stent.Patient is advised for aspirin, Brilinta, beta sher medicine, and cholesterol medicine. Outpatient follow-up next week. Telemetry reviewed. vital signs Vital Sign Date Time Temp Pulse Resp B/P (MAP) Pulse Ox O2 Delivery O2 Flow Rate FiO2 03/30/25 18:51 83 03/30/25 17:00 97.7 18 128/83 (98) 98 97.7 03/30/25 08:00 Room Air* 0 21 21 Total Intake and Output 03/29/25 03/29/25 03/30/25 14:59 22:59 06:59 Intake Total 200 ml Output Total 350 ml Balance -150 ml objective GENERAL: Alert and oriented x 3. No acute distress. Obese. EYES: PERRL, EOMI. Anicteric. HENT: Moist mucous membranes. LUNGS: Clear to auscultation bilaterally. CARDIOVASCULAR: Regular rate and rhythm. ABDOMEN: Soft, non-tender and non-distended. EXTREMITIES: No edema. NEUROLOGIC: No focal neurological deficits. SKIN: Warm, dry. laboratory and microbiology Laboratory Tests 03/30/25 05:24 Test 03/30/25 05:24 Range/Units Serum Glucose 111 H 74-106 mg/dL Problem List Chest pain in the setting of hypertensive emergency. NSTEMI, likely type 2 secondary to above. Rule out structural heart disease. Prediabetes, newly diagnosed. Dyslipidemia, newly diagnosed. Obesity. Assessment/Plan Continued all current supportive medical care. Aspirin, Lipitor, Plavix, Brilinta. Losartan. IV Hydralazine for SBP>160. Morphine and [place] for pain management. Additional plan as per the hospital course. Plan discussed with: Patient TOSHIA ZARAGOZA MD Mar 30, 2025 21:59
== END 2025-03-30 19:23 | disposition home or self-care (01) | DRG 174 ==
LOC: ER 07:36 → OVERFLOW 11:18 → TELE-EAST 23:39
PROVIDERS: ADMIT Internal Medicine; ATTEND Internal Medicine
PROC: 027135Z Dilation of Coronary Artery, Two Arteries with Two Drug-eluting Intraluminal Devices, Percutaneous Approach (ICD-10-PCS; principal; 2025-03-29)
PROC: 02C03ZZ Extirpation of Matter from Coronary Artery, One Artery, Percutaneous Approach (ICD-10-PCS; 2025-03-29)
PROC: 03HY32Z Insertion of Monitoring Device into Upper Artery, Percutaneous Approach (ICD-10-PCS; 2025-03-29)
PROC: 4A023N7 Measurement of Cardiac Sampling and Pressure, Left Heart, Percutaneous Approach (ICD-10-PCS; 2025-03-29)
PROC: B211YZZ Fluoroscopy of Multiple Coronary Arteries using Other Contrast (ICD-10-PCS; 2025-03-29)
PROC: B215YZZ Fluoroscopy of Left Heart using Other Contrast (ICD-10-PCS; 2025-03-29)
PROC: B241ZZ3 Ultrasonography of Multiple Coronary Arteries, Intravascular (ICD-10-PCS; 2025-03-29)
DX: I21.4 Non-ST elevation (NSTEMI) myocardial infarction (principal); I16.1 Hypertensive emergency; E66.9 Obesity, unspecified; I10 Essential (primary) hypertension; R73.03 Prediabetes; E78.5 Hyperlipidemia, unspecified; Z87.891 Personal history of nicotine dependence; Z68.31 Body mass index [BMI] 31.0-31.9, adult
CPT/HCPCS: 36415; 71045; 78452; 80048; 80053; 80061; 83036; 83735; 84443; 84484; 85025; 85610; 85730; 92941; 92973; 92978; 92979; 93005; 93017; 93306; 93458; 96365; 96375; 99152; 99291; 99292; C1887; G0378; J2250; Q9967